=== PATIENT | female | born 1965 | race Caucasian/White ===

== ENCOUNTER 2018-11-05 22:20 | Emergency (ER) | payer OTHER ==
[~2018-11-05] VITALS: Ht 149.9 cm; Wt 74.8 kg
[2018-11-06] MEDS ORDERED: TRAMADOL 50 MG50 MG PO (00:05)
[2018-11-06] MEDS ORDERED: TYLENOL EXTRA500 MG PO (00:26)
[2018-11-06 00:30] VITALS: BP 144/66
== END 2018-11-06 00:35 | disposition home or self-care (01) ==
LOC: ER 22:20
DX: S92.411A Displaced fracture of proximal phalanx of right great toe, initial encounter for closed fracture (principal); W01.0XXA Fall on same level from slipping, tripping and stumbling without subsequent striking against object, initial encounter; Y93.89 Activity, other specified; Y92.89 Other specified places as the place of occurrence of the external cause; Y99.8 Other external cause status